=== PATIENT | female | born 1980 | race Hispanic/Latino ===

== ENCOUNTER 2016-08-15 12:16 | Inpatient (IN) | payer MEDICAID ==
[~2016-08-15] VITALS: Ht 154.9 cm; Wt 84.4 kg
[~2016-08-15 12:16] MED LIST: DOXY25TA46 PO; FAMO20T PO; IBUP-1827 PO; NITR100 PO; ONDA-53 PO; PYR50 PO; RANI150C4 PO
[2016-08-15] MEDS ORDERED: Lactated Ringer's 1,000 ML IV PRN (12:49)
[2016-08-15] MEDS ORDERED: Methylergonovine 0.2 mg/mL Inj IM PRN ×2 (12:50→21:20)
[2016-08-15] MEDS ORDERED: Oxytocin 30 Units/500 mL LR 30 UNITS in IV Premix 1 EACH IV PRN ×2 (12:50→21:20)
[2016-08-15] MEDS ORDERED: Sodium Chloride LOK Flush 10 mL Syringe IVFLUSH PRN (12:50)
[2016-08-15] MEDS ORDERED: Oxytocin 10 Unit/mL Inj IM PRN ×2 (12:50→21:20)
[2016-08-15] MEDS ORDERED: Hemorrhage Kit, Post Partum XX ONE ×2 (12:50→21:20)
[2016-08-15] MEDS ORDERED: Carboprost 250 mCg/mL Inj IM PRN ×2 (12:50→21:20)
[2016-08-15 13:29] LABS: Mean Corpuscular Hemoglobin 28.2 pg (27.0-35.0); Mean Corpuscular Volume 84.9 fL (81-100)
[2016-08-15] MEDS ORDERED: Lactated Ringer's 500 ML IV ONE (13:45)
[2016-08-15] MEDS ORDERED: fentaNYL 2 mCg/mL-Bupiv 0.125% 100 ML EPIDURAL SCH (13:45)
[2016-08-15] MEDS ORDERED: Ondansetron 2 mg/mL 2 mL Inj IVPUSH PRN (13:45)
[2016-08-15] MEDS ORDERED: Atropine 1 mg/10 mL (Code) Syringe IVPUSH PRN (13:45)
[2016-08-15] MEDS ORDERED: EPHEDrine Sulfate 50 mg/mL Inj IVPUSH PRN (13:45)
[2016-08-15] MEDS: Lactated Ringer's 1,000 ML IV SCH ×3 (14:15→18:50)
--- NOTE | 2016-08-15 14:18 | PCM.HPANE ---
Patient Data Date of Service: Aug 15, 2016 Surgeon Admitting Provider:Alfonzo Akbar MD Attending Provider:Alfonzo Akbar MD Primary Care Physician:Alfonzo Akbar MD Other Provider:Jasmyn Ignacio Anesthesia Reason for Visit Labor Check LABOR CHECK Ht/WT & BMI Body Mass Index Allergies Coded Allergies: prochlorperazine (Verified Adverse Reaction, Severe, SEVERE DYSTONIA, 01/18) Diabetes History Hx Diabetes?: No MRSA MRSA: No Medications Hypertension Medication: No Active Scripts Ranitidine 150 Mg [id number] Mg PO BID #30 CAPSULE Ref 5 Prov:Alfonzo Akbar MD 01/23/16 Ondansetron 4 Mg Tablet4 Mg PO QID PRN For Nausea #30 TABLET Ref 4 Prov:Alfonzo Akbar MD 01/23/16 Nitrofurantoin Monohyd/M-Cryst (MacroBid)100 Mg Seurkkb567 Mg PO BID 7 Days Ref 0 Prov:Kam Caro MD 01/19/16 Pyridoxine (Vitamin B-6)50 Mg Wmczia70 Mg PO DAILY #30 TABLET Prov:Kam Caro MD 01/19/16 Doxylamine Succinate (Unisom)25 Mg Eahvoj60 Mg PO BID PRN For Nausea #30 TABLET Prov:Kam Caro MD 01/19/16 Ibuprofen 600 Mg Xdnpbm485 Mg PO QID PRN For Pain #20 TABLET Prov:Hernandez Ni MD 01/02/16 Famotidine (Pepcid)20 Mg Egbrll19 Mg PO BID #60 TABLET Prov:Hernandez Ni MD 01/02/16 History History of ENT Problems?: No Hx of Heart Problems?: No Cardiovascular History: Denies:: Cardiac Surgery Chest Pain Congestive Heart Failure Edema Heart Murmur Hypertension Irregular Heartbeat Pacemaker Thrombophlebitis Hx of Respiratory Problem?: No Respiratory History: Denies:: Tuberculosis Hx Neurologic Problems?: No Gastrointestinal History: Positive for:: Heartburn Female Hx: Positive for:: Currently Hx Musculoskeletal Problems?: No Hx of Psycho/Social Problems?: No Hx Surgeries?: No Hx Any Other Health Problems?: No Other History: Denies:: Cancer Hospitalization Thyroid Disease History Blood Transfusions: Denies:: Blood Transfuse Reaction Blood Transfusions Hx Diabetes: No Hx Alcohol Use: NoHx Substance Use: No Smoking Status: Never Smoker Have You Smoked inLast 12 mo: No Stop/Bang Treated for Sleep Apnea?: No Do You Have a CPAP Machine?: No S-Snoring: Do You Snore Loudly: No T-Tired: feel tired, fatigued: No O-Obsered: Observed not breath: No B- Body Mass Index > 35 kg/m2: Yes A- Age over 50: No N- Neck Large Circumference: No G- Gender Male: No VIJAY Risk Assessment: Low Risk, <3 Yes Risk Assessment Category Category 1A: Patient has history of documented sleep apnea, and HAS NOT received any narcotic, sedative or anesthesia administration during this stay. Category 1B: Patient has history of documented sleep apnea, and HAS received any narcotic , sedative or anesthesia administration during this stay Category 2: Patient has SUSPECTED Obstructive Sleep Apnea, and HAS received any narcotic , sedative or anesthesia administration during this stay. Category 3: Patient has SUSPECTED Obstructive Sleep Apnea and HAS NOT received narcotic, sedative or anesthesia administration during this stay. Category 4: Outpatient in Procedural Areas with known sleep apnea or who screen positive for High Risk via the STOP/BANG questionnaire. Exam Exam General Appearance: Alert, Oriented X3, Cooperative, No Acute Distress HEENT/AIRWAY: MP 2 Lungs: Clear to Auscultation, Normal Air Movement Heart: Exam Unremarkable, Regular Rate/Rhythm, No Murmurs/Rubs/Gallops Meds/Labs/Diagnostics Labs Test 08/15/16 12:55 White Blood Count 11.6th/mm3 (3.8-10.1) Red Blood Count 4.44mil/mm3 (3.90-5.20) Hemoglobin 12.5g/dL (12.0-15.6) Hematocrit 37.7% (35.0-46.0) Mean Corpuscular Volume 84.9fL (81-100) Mean Corpuscular Hemoglobin 28.2pg (27.0-35.0) Mean Corpuscular Hemoglobin Concent 33.2% (32.0-37.0) Red Cell Distribution Width 14.3% (12.3-15.4) Platelet Count 262bil/L (150-400) Plan Impression Patient chart reviewed, patient interviewed and anesthestic plan with risks, benefits, and alternatives discussed, and informed consent obtained. ASA Physical Status: ASA2 Mod Systemic Disease Anesthetic Plan: Epidural Bene/Risks/Altern/Consents: Yes HP Complete Prior to Induction: Yes Evert Miner MD Aug 15, 2016 14:18
[2016-08-15] MEDS ORDERED: Sodium Chloride LOK Flush 10 mL Syringe IVFLUSH SCH (16:30)
--- NOTE | 2016-08-15 19:26 | HP ---
[address] [address] HISTORY AND PHYSICAL PATIENT: JAYLON VINSON : 1980 MR#: [id number] ADMIT: 08/15/2016 JOB ID: [id number] CHIEF COMPLAINT: Increasing contractions at term. HISTORY OF PRESENT ILLNESS: A 36-year-old 3 para 2 with an EDC of August 17, 2016 based on an LMP of November 11, 2015 and a concordant six week four day ultrasound done December 25, 2015 showing her EDC of August 15, 2016 presents with increasing contractions. In triage she is noted to be 4 cm dilated, 70% effaced, -3 station. Jaycob regularly with membranes intact. She is GBS negative. She eventually does request an epidural and I am contacted when she is complete, with an increasing urge to push. ALLERGIES: None known. CURRENT MEDICATIONS: vitamins 1 tablet daily. ISSUES: 1. Advanced maternal age. 2. Excess weight. 3. Poor dentition. 4. Declined flu and Tdap vaccines. 5. Plan for tubal ligation. SOCIAL HISTORY: She is . Nonsmoker. Mother of two. Previously denied alcohol or recreational drug use. PAST GYNECOLOGIC HISTORY: 3, para 2. In 1999 she delivered a term female (8 pound range) with no complications. In 2005 she again had a term delivery (7 pound range) with epidural anesthesia, again with no complications per patient recollection. LABORATORY: Blood type A positive. Rubella immune. Serology nonreactive. Hepatitis B surface antigen and HIV test negative. A1c at the onset of was 5.6. Antibody screen at that time was negative. Gonorrhea and Chlamydia cultures were negative and a Pap was normal. She declined risk testing. Her initial urine culture showed mixed denis. Hematocrit at 27-4/7 weeks was 37.1, fasting glucose 91, a 1-hour glucose tolerance test was 142, and the 2-hour result 119. She is GBS negative screened July 14, 2016. REVIEW OF SYSTEMS: Not obtained as patient is actively pushing. PHYSICAL EXAMINATION: Blood pressure 117/95, pulse 94, last temperature recorded at 1314 was 97.5 degrees Fahrenheit. She is an actively laboring, moderately uncomfortable woman with an epidural. Cervical examination shows her to be 100% effaced, 10 cm dilated, -2 station, with some descent with pushing. heart tracing shows a baseline in the 130s to 140s. There are decelerations during pushing with rapid recovery and good variability. ASSESSMENT: 1. Gravid at term. 2. Active labor. She is now completely dilated, with increasing rectal pressure and an urge to push. 3. Group B streptococcus negative. 4. Desires tubal ligation. 5. Declined Tdap vaccine during but said she would consider it . PLAN: Continue pushing. Routine obstetrical care. I contacted Dr. Ward, on-call for OPERATOR HELPER, who will see if Dr. Herndon is able to performed the patient's tubal tomorrow. We will make her n.p.o. after midnight. I will recommend a Tdap vaccine if she is willing. Her and a supportive cousin are at bedside. She declined a professional diplomatic interpreter when offered. SHARDA
--- NOTE | 2016-08-15 20:51 | PROG NOTE ---
[address] [address] PROGRESS NOTE PATIENT: JAYLON VINSON : 1980 MR#: [id number] ADMIT: 08/15/2016 JOB ID: [id number] DATE: 08/15/2016 LABOR PROGRESS NOTE: Addendum note dictated because patient has now been pushing approximately 2 hours. Initially her pushing efforts were not very well coordinated with contractions. She does seem to have gotten this better with coaching from nursing. Vaginal exam shows the skull to be in PRAKASH position, ow at about +1 station with some molding, but also some clear progress of the skull with pushing efforts. I had nursing come and re-examine her, who concur that she has progressed since the initial start. heart tracing shows decelerations with pushing improved with oxygen and position changes. There is still good variability and recovery between contractions. ASSESSMENT: Slow second stage of labor, but patient is making progress and I feel she can continue to proceed towards vaginal delivery. PLAN: Continuous monitoring. Continued coaching efforts around pushing. Consider vacuum assist if she fatigues or does not make clinical progress.
[2016-08-15] MEDS ORDERED: LANOlin HPA 7 Gm Ointment TOPICAL PRN (21:20)
[2016-08-15] MEDS ORDERED: Witch Hazel-Glycerin Pads TOPICAL PRN (21:20)
[2016-08-15] MEDS ORDERED: Benzocaine (Dermoplast) 20% 60 Gm Spray TOPICAL PRN (21:20)
[2016-08-15] MEDS ORDERED: TdaP Vaccine 0.5 mL Inj IM ONE (21:20)
--- NOTE | 2016-08-15 22:59 | PROG NOTE ---
[address] [address] PROGRESS NOTE PATIENT: JAYLON VINSON : 1980 MR#: [id number] ADMIT: 08/15/2016 JOB ID: [id number] DELIVERY NOTE: DATE: 08/15/2016 Delivery position: PRAKASH. Delivery weight: 3984 grams (8 pounds, 9 ounces), viable female. Apgars: 8 and 9. Umbilical cord: Three-vessel cord normal length and appearance; nuchal cord x1. Placenta: Meconium-stained, otherwise normal appearing. No evidence of retained fragments. Central cord insertion. ESTIMATED BLOOD LOSS: 200 mL. LACERATIONS: None. ANESTHESIA: Epidural. COMPLICATIONS: Nuchal cord x1 and meconium noted after delivery of the infant. Patient continued to push approximately 2-1/2 hours. She was making clinical progress. Head delivered in PRAKASH position. Nuchal cord was identified and reduced. Shoulders were slow to deliver but there was no shoulder dystocia. After delivery of the infant, it was handed off to mother and nursing for additional stimulation. A significant amount of meconium was noted on the lower half of the body. Note that there had been no meconium on exam gloves or in the amniotic fluid noted prior to delivery. Placenta delivered spontaneously with gentle traction on the cord after cord was clamped and cut after a 2 minute delay. Cord blood was collected and sent prior to delivery of placenta. The fundus was firm after delivery and IV oxytocin was being instituted with rapid slowing of her bleeding. Perineum was inspected and showed no visible lacerations. Sponge and needle counts are correct after delivery. Mother plans to breast and possibly bottle feed as well. She is GBS negative. Vitals are stable after delivery. MTDD
[2016-08-16] MEDS: HYDROcodone-APAP 5-325 mg Tablet PO PRN ×2 (05:44→16:06)
[2016-08-16 07:55] LABS: Mean Corpuscular Hemoglobin 27.6 pg (27.0-35.0); Mean Corpuscular Volume 86.1 fL (81-100)
[2016-08-16] MEDS: Ascorbic Acid 500 mg Tablet PO SCH (08:00)
[2016-08-16] MEDS ORDERED: Morphine PF 1 mg/mL 10 mL Inj ONE (08:07)
[2016-08-16] MEDS ORDERED: Bupivacaine-MPF 0.25%/EPI 30 mL Inj ONE (09:10)
[2016-08-16] MEDS ORDERED: Sodium Citrate-Citric Acid 15 mL Solution ONE (09:12)
[2016-08-16] MEDS: Lactated Ringer's 1,000 ML IV SCH ×4 (09:25→23:33)
--- NOTE | 2016-08-16 10:03 | PCM.HPANE ---
Patient Data Date of Service: Aug 16, 2016 Surgeon Admitting Provider:Alfonzo Akbar MD Attending Provider:Alfonzo Akbar MD Primary Care Physician:Alfonzo Akbar MD Other Provider:Jasmyn Ignacio Anesthesia Reason for Visit Labor Check LABOR CHECK Ht/WT & BMI Height (Feet): 5 Height (Inches): 1 Weight (Kilograms): 84 Body Mass Index Allergies Coded Allergies: prochlorperazine (Verified Adverse Reaction, Severe, SEVERE DYSTONIA, 01/18) Past Anesthesia History Anesthesia History: Denies:: Anesthesia Reactions, Fam Anesthesia Reaction, Fam Malignant Hypertherm, Malignant Hyperthermia Diabetes History Hx Diabetes?: No MRSA MRSA: No Medications Hypertension Medication: No Active Scripts Ranitidine 150 Mg Qipgonk294 Mg PO BID #30 CAPSULE Ref 5 Prov:Alfonzo Akbar MD 01/23/16 Ondansetron 4 Mg Tablet4 Mg PO QID PRN For Nausea #30 TABLET Ref 4 Prov:Alfonzo Akbar MD 01/23/16 Nitrofurantoin Monohyd/M-Cryst (MacroBid)100 Mg Utjzzev908 Mg PO BID 7 Days Ref 0 Prov:Kam Caro MD 01/19/16 Pyridoxine (Vitamin B-6)50 Mg Ptpslv69 Mg PO DAILY #30 TABLET Prov:Kam Caro MD 01/19/16 Doxylamine Succinate (Unisom)25 Mg Ltdhwa88 Mg PO BID PRN For Nausea #30 TABLET Prov:Kam Caro MD 01/19/16 Ibuprofen 600 Mg Qxnriq021 Mg PO QID PRN For Pain #20 TABLET Prov:Hernandez Ni MD 01/02/16 Famotidine (Pepcid)20 Mg Sdzifq97 Mg PO BID #60 TABLET Prov:Hernandez Ni MD 01/02/16 History History of ENT Problems?: No Hx of Heart Problems?: No Cardiovascular History: Denies:: Cardiac Surgery Chest Pain Congestive Heart Failure Edema Heart Murmur Hypertension Irregular Heartbeat Pacemaker Thrombophlebitis Other Cardiac History: endorses occasional hypotension without syncope Hx of Respiratory Problem?: No Respiratory History: Denies:: Tuberculosis Hx Neurologic Problems?: No Neurological History: Denies:: CVA Seizures Hx of GI Problems?: No Gastrointestinal History: Positive for:: Heartburn Denies:: Gastroesphageal Reflux Hx of Problems?: No Female Hx: Denies:: Currently Other History/Comment post- day 1 Hx Musculoskeletal Problems?: No Hx of Psycho/Social Problems?: No Hx Surgeries?: No Hx Any Other Health Problems?: No Other History: Denies:: Cancer Hospitalization Thyroid Disease History Blood Transfusions: Denies:: Blood Transfuse Reaction Blood Transfusions Hx Diabetes: No Hx Alcohol Use: NoHx Substance Use: No Smoking Status: Never Smoker Have You Smoked inLast 12 mo: No Stop/Bang Treated for Sleep Apnea?: No Do You Have a CPAP Machine?: No S-Snoring: Do You Snore Loudly: No T-Tired: feel tired, fatigued: No O-Obsered: Observed not breath: No B- Body Mass Index > 35 kg/m2: Yes A- Age over 50: No N- Neck Large Circumference: No G- Gender Male: No VIJAY Risk Assessment: Low Risk, <3 Yes Risk Assessment Category Category 1A: Patient has history of documented sleep apnea, and HAS NOT received any narcotic, sedative or anesthesia administration during this stay. Category 1B: Patient has history of documented sleep apnea, and HAS received any narcotic , sedative or anesthesia administration during this stay Category 2: Patient has SUSPECTED Obstructive Sleep Apnea, and HAS received any narcotic , sedative or anesthesia administration during this stay. Category 3: Patient has SUSPECTED Obstructive Sleep Apnea and HAS NOT received narcotic, sedative or anesthesia administration during this stay. Category 4: Outpatient in Procedural Areas with known sleep apnea or who screen positive for High Risk via the STOP/BANG questionnaire. Low Risk, <3 Yes Exam Exam General Appearance: Alert, Oriented X3, Cooperative, No Acute Distress HEENT/AIRWAY: MP 3, Neck Movement (from), Mouth Opening (3), Other (tmd3) Lungs: Normal Air Movement Heart: Exam Unremarkable, Regular Rate/Rhythm, Normal S1, Normal S2, No Murmurs /Rubs/Gallops Meds/Labs/Diagnostics Admission Meds Current Medications Lactated Ringer's (Lr) 1,000 ml @ 125 mls/hr Q8H IV Last administered on 18:50; Start 08/15/16 at 13:45; Stop 08/15/16 at 21:18; Status DC Sodium Chloride 10 ml 10 ml REGINALDO IVFLUSH Last administered on 08/15/16 16:30; Start 08/15/16 at 16:30; Stop 08/15/16 at 21:18; Status DC Lactated Ringer's (Lr) 1,000 ml @ 125 mls/hr Q8H IV Last administered on 09:25; Start 08/15/16 at 21:17 Citric Acid/ Sodium Citrate (Bicitra) 30 ml STK-MED ONCE .ROUTE Last administered on 08/16/16 09:21; Start 08/16/16 at 09:12; Stop 08/16/16 at 09:13 ; Status DC Labs Test 08/16/16 07:35 White Blood Count 15.6th/mm3 (3.8-10.1) Red Blood Count 3.66mil/mm3 (3.90-5.20) Hemoglobin 10.1g/dL (12.0-15.6) Hematocrit 31.5% (35.0-46.0) Mean Corpuscular Volume 86.1fL (81-100) Mean Corpuscular Hemoglobin 27.6pg (27.0-35.0) Mean Corpuscular Hemoglobin Concent 32.1% (32.0-37.0) Red Cell Distribution Width 14.2% (12.3-15.4) Platelet Count 229bil/L (150-400) Plan Impression Patient chart reviewed, patient interviewed and anesthestic plan with risks, benefits, and alternatives discussed, and informed consent obtained. ASA Physical Status: ASA2 Mod Systemic Disease Anesthetic Plan: SAB Bene/Risks/Altern/Consents: Yes HP Complete Prior to Induction: Yes Cooper Lr MD Aug 16, 2016 10:02
[2016-08-16] MEDS ORDERED: Lactated Ringer's 1,000 ML IV PRN (11:18)
[2016-08-16] MEDS ORDERED: MetoCLOpramide 5 mg/mL 2 mL Inj IVPUSH PRN (11:20)
[2016-08-16] MEDS ORDERED: EPHEDrine Sulfate 50 mg/mL Inj IVPUSH PRN (11:20)
[2016-08-16] MEDS ORDERED: Phenylephrine/NS-PF 100 mCg/mL 5 mL Syringe IVPUSH PRN (11:20)
[2016-08-16] MEDS ORDERED: Atropine 0.4 mg/mL Inj IV PRN (11:20)
[2016-08-16] MEDS ORDERED: Ondansetron 2 mg/mL 2 mL Inj IVPUSH PRN (11:20)
[2016-08-16] MEDS ORDERED: fentaNYL-PF 50 mCg/mL 2 mL Inj IVPUSH PRN (11:20)
--- NOTE | 2016-08-16 12:08 | PCM.ANEP2 ---
Post Anesthesia Evaluation ASA/CMS Post Anesthesia VS in Patient's Normal Range?: Yes Resp Stable; Airway Patent?: Yes CV Function & Hydration Stable: Yes Mental Status Recovered?: Yes Pain control Satisfactory?: Yes N/V Control Satisfactory?: Yes Cooper Lr MD Aug 16, 2016 12:08
--- NOTE | 2016-08-16 12:08 | PCM.ANEP1 ---
Post Anesthesia Phase 1 PACU Phase 1 Assessment Date of Service: Aug 16, 2016 Anesthetic Administered: SAB Level of Alertness: Awake, talking GARCIA's with Equal Strength: No (satisfactory block) Pain: No Pain Scale Score: 0 Nausea or Vomiting: No Oxygen Delivery: Room Air Lungs: Normal Air Movement Cooper Lr MD Aug 16, 2016 12:08
--- NOTE | 2016-08-16 15:09 | CONS ---
[address] [address] CONSULTATION REPORT PATIENT: JAYLON VINSON : 1980 MR#: [id number] ADMIT: 08/15/2016 JOB ID: [id number] DATE OF SERVICE: 08/16/2016 REASON FOR CONSULTATION: Tubal ligation. HISTORY OF PRESENT ILLNESS: This is a 36-year-old, G3, P 3-0-0-3 female, day number one following spontaneous vaginal delivery who is requesting tubal ligation. She signed her [facility] tubal ligation paperwork in clinic 30 days prior to this. She presented in active labor on August 15 and delivered a liveborn female infant without any complications. Past medical history, surgical history, OB history, social history: Please see dictated history and physical by Dr. Akbar. OBJECTIVE: Blood pressure is 100/56, heart rate 83, temperature is 36.3, respiratory rate is 18. In general, she is awake, alert, oriented, lying comfortable in bed in no acute distress. Heart shows regular rate and rhythm. Her lungs are clear to auscultation bilaterally. Her abdomen is soft, nontender, nondistended. Her extremities show no tenderness. No edema. Her fundus is firm. Psychiatric: She is awake, alert, oriented, in no acute distress. ASSESSMENT: This is a 36-year-old, 3, now para 3-0-0-3 female, day one from vaginal delivery, desiring permanent sterilization. PLAN: Risks, benefits, and alternatives to a tubal ligation were reviewed with her in depth including bleeding, infection, damage to surrounding organs, including bowel or bladder, risk of regret, and risk of failure with high rate of subsequent ectopic . She expresses understanding. Wishes to proceed. Consents were signed. SHARDA
--- NOTE | 2016-08-16 16:07 | PROG NOTE ---
[address] [address] PROGRESS NOTE PATIENT: JAYLON VINSON : 1980 MR#: [id number] ADMIT: 08/15/2016 JOB ID: [id number] DATE: 08/16/2016 This is day number one. SUBJECTIVE: Overnight, patient has done well. She has had her tubal ligation this morning, as requested. She has not yet been up with nursing after the tubal, but was able to ambulate after delivery. She reports her pain is "a little," but manageable. She is planning to breast and bottle feed her infant both. Vital signs are reviewed. She is a tired-appearing but otherwise conversant woman, not in acute distress. Abdomen is not palpated as she just had a tubal ligation. Hemoglobin 10.1, hematocrit 31.5, down from an admit value of 12.5 and 37.7. ASSESSMENT: 1. day number one. 2. Postoperative day zero from bilateral tubal ligation. 3. Advanced maternal age. PLAN: She is doing well but discharge today would be less than 24 hours after delivery. I would like to watch her infant a little longer. Anticipate discharge home tomorrow. She has excellent family support. Otherwise, continue routine care.
--- NOTE | 2016-08-16 19:03 | OP ---
[address] [address] OPERATIVE REPORT PATIENT: JAYLON VINSON : 1980 MR#: [id number] ADMIT: 08/15/2016 JOB ID: [id number] DATE OF SURGERY: 08/16/2016 PREOPERATIVE DIAGNOSIS(ES): Undesired fertility. POSTOPERATIVE DIAGNOSIS(ES): Undesired fertility. PROCEDURE: tubal ligation. SURGEON: Jacqueline eHrndon MD. ANESTHESIA: Spinal. ESTIMATED BLOOD LOSS: 2 cc. FLUID REPLACEMENT: 650 cc of crystalloid. FINDINGS: uterus. Normal-appearing fallopian tubes bilaterally. COMPLICATIONS: None apparent. INDICATIONS: This is a 36-year-old, G3, P 3-0-0-3 female, who is day one following a spontaneous vaginal delivery that occurred on August 15, 2016. She was also desiring permanent sterilization and had signed her consents in the clinic prior to the procedure. After discussing risks, benefits, and alternatives with her, she elected to proceed. PROCEDURE: The patient was taken to the operating room. She was placed in dorsal supine position. She was prepped and draped in the usual sterile fashion. Under excellent spinal anesthesia, 5 cc of local anesthetic was injected infraumbilically. A 3 cm infraumbilical incision was then made. This was brought down sharply to the level of the rectus fascia. The fascia was then incised sharply and the peritoneum was then entered. This was then extended bluntly bilaterally to allow visualization. A single lap was placed into the abdominal cavity to displace the bowel cephalad and the patient was placed in Trendelenburg position. A small Hilario O-retractor was then placed allowing visualization of the fallopian tube. The left fallopian tube was grasped with a Ludmila clamp, walked out to the fimbria, and then was undermined using a hemostat. Distal and proximal segments of the fallopian tube were then tied off and the portion of fallopian tube between the two sutures was then excised and sent to Pathology. Good hemostasis was noted of this fallopian tube. An approximately 1.5 cm segment of fallopian tube was removed. Next, attention was turned to the right fallopian tube,, and after appropriate visualization,,this fallopian tube was then grasped with a Ludmila clamp, walked out to the fimbria to ensure appropriate anatomy. The mesosalpinx was again undermined with a hemostat and a distal and proximal segment of the fallopian tube was then suture ligated and the portion between the two sutures, approximately 2 cm segment, was excised and sent to pathology. Hemostasis was also noted of this fallopian tube. The left fallopian tube was again reinspected and again hemostasis was assured. The retractor was removed from the abdomen and all sponges were removed from the abdomen. The fascia was then closed with a running nonlocking stitch of 0 Vicryl. The subcutaneous tissue was closed with 4-0 Vicryl and the skin was closed with 4-0 Vicryl in a running, subcuticular fashion. The patient tolerated this procedure well. Recovered in Labor and Delivery with her . All sponge, needle, and instrument counts were correct at the completion of the procedure.
[2016-08-16] MEDS: Acetaminophen IV 1,000 mg IV PRN (21:15)
[2016-08-16 21:34] LABS: Mean Corpuscular Hemoglobin 27.9 pg (27.0-35.0); Mean Corpuscular Volume 87.9 fL (81-100)
--- NOTE | 2016-08-16 22:09 | NUR ---
shift note Assumed care of patient at 1500. Patient had Lap BTL today at 1000, recovery finished at 1330. Notified in report that patient had not voided since 1000. During assessment, patient c/o dizziness. Fundus firm, off to the right, BP 100/56, RR 18, Pulse 68. At 1600 assisted patient up to bathroom, patient unable to void. Bladder scan done, >999ML so patient was straight cathed for 1250cc straw colored urine. Patient instructed to drink lots of water and call when she felt need to urinate. At 1930 patient reported vomiting several times. RN present for 500cc emesis. Patient helped to bathroom at this time, still unable to void, bladder scanned for 350cc. Dr. Roper and Dr. Andrade notified of patient status. 500cc bolus give as well as 8mg zofran. Ofirmev also given for pain. Patient resting until 2130, assisted to bathroom again, unable to void. Tirado catheter placed. Patient denies pain at this time.
[2016-08-17] MEDS: Acetaminophen IV 1,000 mg IV PRN (03:10)
[2016-08-17] MEDS: Ascorbic Acid 500 mg Tablet PO SCH (07:48)
--- NOTE | 2016-08-17 08:49 | PCM.DIOB ---
Obstetrical Disch Instruction Date of Service: Aug 17, 2016 Dates of Hospitalization Date of Hospital Admission Aug 15, 2016 at 12:37 Providers Admitting Physician: Alfonzo Akbar MD Primary Care Physician: Alfonzo Akbar MD Attending Physician: Alfonzo Akbar MD Discharge Diagnosis Problems: (1) Encounter for vaginal delivery Status: Acute ICD Code: O80 (2) History of bilateral tubal ligation Status: Acute ICD Code: Z98.51 Diet Discharge Diet: No restrictions Activity Discharge Activity-General: Activity as pain allows, Activity as energy allows , No lifting >15 pounds for 2 weeks Dressing and Incisional Care Dressing Care: Allow Steri Stripes to fall off, Remove outer dressing after 24 hrs Hygiene: May shower Follow Up Plan Follow-up Provider (F9): Alfonzo Akbar MD Follow-up appointment: Weeks (6) Call your provider for: Fever or Chills, Shortness of breath, Heavy vaginal bleeding, Excessive constipation, Red painful breasts Alfonzo Akbar MD Aug 17, 2016 08:49
[2016-08-17] MEDS ORDERED: PNV1TABL81 PO (08:51)
[2016-08-17] MEDS ORDERED: DOCU-41 PO (08:51)
[2016-08-17] MEDS ORDERED: IBUP800T28 PO (08:51)
[2016-08-17] MEDS ORDERED: FERR-74 PO (08:51)
[2016-08-17] MEDS ORDERED: HYDR-4003 PO (08:51)
--- NOTE | 2016-08-17 09:37 | DIS ---
[address] [address] DISCHARGE SUMMARY PATIENT: JAYLON VINSON : 1980 MR#: [id number] ADMIT: 08/15/2016 JOB ID: [id number] DIS: 08/17/2016 DISCHARGE DIAGNOSES: 1. Vaginal delivery at term. 2. Meconium-stained amniotic fluid. 3. Bilateral tubal ligation performed by Dr. Herndon. 4. Acute urinary retention, improved. 5. Advanced maternal age. 6. Excess weight. 7. History of poor dentition. 8. anemia, related to acute blood loss, discharge H and H 9.5 and 29.9. DISCHARGE MEDICATIONS: 1. Ibuprofen 800 mg p.o. q.6 h. p.r.n. pain. 2. Hydrocodone/acetaminophen 5/325 mg, 1-2 tablets q.4 h. p.r.n. pain, #12, no refill. 3. Docusate sodium 100 mg p.o. b.i.d. p.r.n. constipation. 4. vitamin, 1 tablet daily. 5. Ferrous sulfate 325 mg twice daily for six weeks. DISCHARGE DIET: Ad sharda. DISCHARGE ACTIVITY: As tolerated by pain and energy FOLLOW UP: Follow up with Dr. Akbar in six weeks, sooner if problems. HOSPITAL COURSE: The patient is a now 36-year-old, 3 para 3, who presented at 39-5/7 weeks in active labor. She went on to have a vaginal delivery complicated by a nuchal cord x1 and a meconium-stained , although initial fluid was not meconium-stained. Apgars were 8 and 9. weight 3984 g. She sustained no lacerations and there was minimal blood loss. The following day, the patient underwent bilateral tubal ligation with Dr. Herndon. Her hematocrit was noted to drop to 31.5 from an admit value of 37.7, and the following day, down to 29.9. Because of this, she will be started on iron for six weeks duration. Her lochia is slowing. The day after delivery, the patient had some acute urinary retention, requiring placement of a Tirado catheter. At the time I am rounding, she still has this in as she has not been up due to discomfort; plan is for discontinuation and if she is able to void without the catheter she will be discharged to home. If she cannot I will delay discharge and perform further evaluation. The patient was able to ambulate and have a bowel movement. MTDD
[2016-08-17] MEDS ORDERED: Lidocaine 2% 5 mL Urojet Topical Jelly Syringe ONE (13:26)
[2016-08-17] MEDS: HYDROcodone-APAP 5-325 mg Tablet PO PRN (13:41)
[2016-08-17 17:00] VITALS: BP 106/58; PULSE 75; RESP 16
--- NOTE | 2016-08-19 11:25 | PATH ---
SURGICAL PATHOLOGY Attending Physician:Jacqueline Herndon, CASE STATUS: Signed Out PATIENT NAME: JAYLON VINSON PID: [id number] : 1980 DATE COLLECTED:08/16/2016 00:00 SPECIMEN: 1: Fallopian Tube, Sterilization 2: Fallopian Tube, Sterilization CLINICAL HISTORY: 1. RIGHT FALLOPIAN TUBE 2. LEFT FALLOPIAN TUBE FINAL DIAGNOSIS: 1. 2.SEGMENTS OF RIGHT AND LEFT FALLOPIAN TUBES (STERILIZATION PROCEDURE): NO SIGNIFICANT PATHOLOGIC CHANGE. ICD10 CODE Z30.2 GROSS DESCRIPTION: The specimen is received in two formalin filled containers labeled with the patient's name. 1). The specimen is labeled "R. fallopian tube" and consists of a 1.3 x 0.6 x 0.5 CM cylindrical-shaped portion of tissue. The specimen is inked blue. The specimen is trisected and entirely submitted in cassette 1A. 2). The specimen is labeled "L. fallopian tube" and consists of a 1.3 x 0.6 x 0.6 CM cylindrical-shaped portion of tissue. The specimen is inked blue. The specimen is trisected and entirely submitted in cassette 2A. 08/17/2016 [facility] MICRO DESCRIPTION: See diagnosis. ICD-9 CODES: CPT CODES: 1: 97638 2: 57770 Electronically Signed Out Alejo Vora MD [facility] [address], [place] [address] Technical component performed at [facility], [facility] [address], [place], [address]
== END 2016-08-17 17:41 | disposition home or self-care (01) | DRG 767 ==
LOC: FBCO 12:16 → FBC 12:37
PROVIDERS: ADMIT Family Medicine; ATTEND Family Medicine
PROC: 10E0XZZ Delivery of Products of Conception, External Approach (ICD-10-PCS; principal; 2016-08-15)
PROC: 0UB70ZZ Excision of Bilateral Fallopian Tubes, Open Approach (ICD-10-PCS; 2016-08-16)
DX: O69.81X0 Labor and delivery complicated by cord around neck, without compression, not applicable or unspecified (principal); D62 Acute posthemorrhagic anemia; Z68.35 Body mass index [BMI] 35.0-35.9, adult; O26.03 Excessive weight gain in pregnancy, third trimester; O77.0 Labor and delivery complicated by meconium in amniotic fluid; Z37.0 Single live birth; O09.523 Supervision of elderly multigravida, third trimester; Z30.2 Encounter for sterilization; R33.9 Retention of urine, unspecified; O99.03 Anemia complicating the puerperium; Z3A.39 39 weeks gestation of pregnancy